=== PATIENT | female | born 1975 | race Two or more races ===

== ENCOUNTER 2020-09-02 09:00 | Inpatient (IN) | payer OTHER ==
[~2020-09-02] VITALS: Ht 160 cm; Wt 80.3 kg
[2020-09-02] MEDS ORDERED: LEVSIN0.125 MG PO (12:39)
[2020-09-02] MEDS ORDERED: DICY20TA PO (12:40)
== END 2020-09-12 15:26 | disposition home or self-care (01) | DRG 742 ==
LOC: O/R 09-09 06:00 → SURH 09-09 09:00 → OB/GYN 09-09 20:42
PROVIDERS: Colon & Rectal Surgery; ADMIT Obstetrics & Gynecology Gynecologic Oncology; ATTEND Obstetrics & Gynecology Gynecologic Oncology
PROC: 0UT28ZZ Resection of Bilateral Ovaries, Via Natural or Artificial Opening Endoscopic (ICD-10-PCS; 2020-09-09)
PROC: 0UT78ZZ Resection of Bilateral Fallopian Tubes, Via Natural or Artificial Opening Endoscopic (ICD-10-PCS; 2020-09-09)
PROC: 0DBP4ZZ Excision of Rectum, Percutaneous Endoscopic Approach (ICD-10-PCS; 2020-09-09)
PROC: 07BB4ZX Excision of Mesenteric Lymphatic, Percutaneous Endoscopic Approach, Diagnostic (ICD-10-PCS; 2020-09-09)
PROC: 0UT98ZZ Resection of Uterus, Via Natural or Artificial Opening Endoscopic (ICD-10-PCS; principal; 2020-09-09 16:30)
PROC: 0DTN4ZZ Resection of Sigmoid Colon, Percutaneous Endoscopic Approach (ICD-10-PCS; 2020-09-09 16:30)
DX: D25.1 Intramural leiomyoma of uterus (principal); K56.690 Other partial intestinal obstruction; D25.2 Subserosal leiomyoma of uterus; N80.5 Endometriosis of intestine; N80.0 Endometriosis of uterus; K43.9 Ventral hernia without obstruction or gangrene; N83.11 Corpus luteum cyst of right ovary; N83.02 Follicular cyst of left ovary; N83.292 Other ovarian cyst, left side